=== PATIENT | male | born 1975 | race Caucasian/White ===

== ENCOUNTER 2018-04-29 14:13 | Emergency (ER) | payer OTHER ==
[2018-04-29 14:23] VITALS: BP 148/93
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
== END 2018-04-29 15:00 | disposition home or self-care (01) ==
LOC: CED 14:13
DX: S46.911A Strain of unspecified muscle, fascia and tendon at shoulder and upper arm level, right arm, initial encounter (principal); F17.200 Nicotine dependence, unspecified, uncomplicated; X58.XXXA Exposure to other specified factors, initial encounter; Y99.8 Other external cause status; Y93.15 Activity, underwater diving and snorkeling
CPT/HCPCS: 73030-PO